=== PATIENT | male | born 1965 | race Two or more races ===

== ENCOUNTER 2022-06-13 02:17 | Emergency (ER) | payer OTHER ==
[~2022-06-13] VITALS: Ht 170.2 cm; Wt 73.5 kg
[2022-06-13] MEDS ORDERED: HYDRODIURIL12.5 MG (02:28)
[2022-06-13] MEDS ORDERED: EZETIMIBE-SIMV1 EAC3 (02:29)
== END 2022-06-13 09:47 | disposition home or self-care (01) ==
LOC: ER 02:17
DX: R07.89 Other chest pain (principal); I10 Essential (primary) hypertension